=== PATIENT | female | born 1990 | race Caucasian/White ===

== ENCOUNTER 2016-03-20 10:10 | Inpatient (IN) ==
[2016-03-20] MEDS ORDERED: AMBIEN PO PRN (20:10)
[2016-03-20] MEDS ORDERED: BRETHINE SUBQ PRN (20:10)
[2016-03-20] MEDS ORDERED: PEPCID PO PRN (20:10)
[2016-03-20] MEDS ORDERED: ZOFRAN IV PRN (20:10)
[2016-03-20] MEDS ORDERED: TYLENOL PO PRN (20:10)
[2016-03-20] MEDS ORDERED: STADOL IV PRN ×3 (20:10)
[2016-03-20] MEDS ORDERED: PEPCID IV PRN (20:10)
[2016-03-20] MEDS ORDERED: KEFZOL 1 GM/D5W 50 ML IV PRN (20:10)
[2016-03-20] MEDS ORDERED: PITOCIN 30 UNITS/LR 500 ML IV SCH (20:15)
[2016-03-20] MEDS: LR 1,000 ML IV SCH (21:15)
[2016-03-20 21:31] LABS: MANUAL DIFF NEEDED? NO
[2016-03-20 21:33] LABS: BASO% 0.2 % (0.0-0.8); EOS# 0.02 X1000 (0.0-0.7); EOS% 0.1 % (0.0-10.0); HEMATOCRIT 38.3 % (37.0-47.0); HEMOGLOBIN 12.4 g/dL (12.0-16.0); IMM GRAN# 0.05 X1000 (0.0-0.04); IMM GRAN% 0.3 % (0.0-0.5); LYMPH# 2.94 X1000 (1.2-3.4); LYMPH% 15.9 % (20.5-51.1); MCH 28.6 PG (27-31); MCHC 32.4 g/dL (33-37); MCV 88.2 FL (81-99); MONO# 1.02 X1000 (0.11-0.59); MONO% 5.5 % (1.7-9.3); PLT 230 X1000 (130-400); RBC 4.34 XMIL (4.2-5.4)
[2016-03-20] MEDS ORDERED: CYTOTEC PO ONE (22:00)
[2016-03-21] MEDS ORDERED: CYTOTEC PO SCH (02:00)
[2016-03-21] MEDS ORDERED: NAROPIN 0.2% EPIDURAL PRN ×2 (07:53→10:06)
[2016-03-21] MEDS: LR 1,000 ML IV SCH (08:54)
[2016-03-21] MEDS ORDERED: FENTANYL-BUPIV-NS 2 MCG-0.1% 200 ML ONE (09:26)
[2016-03-21] MEDS ORDERED: MARCAINE 0.25% PF ONE (09:26)
[2016-03-21] MEDS ORDERED: FENTANYL-BUPIV-NS 2 MCG-0.1% 200 ML EPIDURAL PRN (10:07)
[2016-03-21] MEDS ORDERED: MARCAINE 0.25% PF INJ ONE (10:15)
[2016-03-21 12:04] LABS: URINE SOURCE VOIDED
[2016-03-21 12:15] LABS: BILIRUBIN URINE NEGATIVE (NEGATIVE); BLOOD URINE NEGATIVE (NEGATIVE); CLARITY CLEAR (CLEAR); COLOR YELLOW; GLUCOSE URINE NEGATIVE (NEGATIVE); LEUKOCYTES URINE NEGATIVE (NEGATIVE); NITRITE URINE NEGATIVE (NEGATIVE); PROTEIN URINE 1+(30 mg/dL) mg/dL (NEGATIVE); SP GRAVITY URINE 1.015; UROBILINOGEN URINE NORMAL
[2016-03-21 12:23] LABS: UR AMPHETAMINES QUAL NONE DETECTED (NONE DETECT); UR BARBITUATES QUAL NONE DETECTED (NONE DETECT); UR BENZODIAZEPIN QUAL NONE DETECTED (NONE DETECT); UR CANNABINOIDS QUAL NONE DETECTED (NONE DETECT); UR COCAINE QUAL NONE DETECTED (NONE DETECT); UR MDMA QUAL NONE DETECTED (NONE DETECT); UR METHADONE QUAL NONE DETECTED (NONE DETECT); UR METHAMPHETAMINE QUAL NONE DETECTED (NONE DETECT); UR OPIATES QUAL NONE DETECTED (NONE DETECT); UR OXYCODONE QUAL NONE DETECTED (NONE DETECT); UR PCP QUAL NONE DETECTED (NONE DETECT); UR TCA QUAL NONE DETECTED (NONE DETECT)
[2016-03-21] MEDS ORDERED: MINERAL OIL ONE (13:29)
[2016-03-21] MEDS ORDERED: XYLOCAINE-MPF 1% ONE (13:29)
[2016-03-21] MEDS ORDERED: PITOCIN 20 UNITS/LR 1,000 ML ONE (16:00)
[2016-03-21] MEDS ORDERED: HYDROXYZINE PO PRN (16:04)
[2016-03-21] MEDS ORDERED: MINERAL OIL MISC PRN (16:04)
[2016-03-21] MEDS ORDERED: PITOCIN 30 UNITS/LR 500 ML IV ONE (16:04)
[2016-03-21] MEDS ORDERED: PITOCIN 20 UNITS/LR 1,000 ML IV SCH (16:04)
[2016-03-21] MEDS ORDERED: BENADRYL PO PRN (16:04)
[2016-03-21] MEDS ORDERED: HYDROXYZINE IM PRN (16:04)
[2016-03-21] MEDS ORDERED: BENADRYL IV PRN (16:04)
[2016-03-21] MEDS ORDERED: AMBIEN PO PRN (16:04)
[2016-03-21] MEDS ORDERED: BOOSTRIX VACCINE IM ONE (16:04)
[2016-03-21] MEDS ORDERED: CYTOTEC PO PRN (16:04)
[2016-03-21] MEDS ORDERED: XYLOCAINE-MPF 1% INJ PRN (16:04)
[2016-03-21] MEDS ORDERED: M-M-R II VACCINE SUBQ ONE (16:04)
[2016-03-21] MEDS ORDERED: NORCO-5 PO PRN (16:04)
[2016-03-21] MEDS ORDERED: PITOCIN IM PRN (16:04)
[2016-03-21] MEDS: PERI MEDS (DERMOPLAST/NUPERCAINAL/TUCKS) MISC PRN (18:19)
[2016-03-21] MEDS: MOTRIN PO PRN (18:28)
--- NOTE | 2016-03-21 18:30 | OPERATIVE NOTE ---
PROCEDURE DATE: 03/21/2016 PRE DELIVERY DIAGNOSES: 1. Intrauterine at term for labor induction. 2. History of intravenous drug abuse. POST DELIVERY DIAGNOSES: 1. Intrauterine at term for labor induction. 2. History of intravenous drug abuse. 3. Maternal exhaustion. 4. Direct occiput posterior presentation of the baby. PROCEDURE: Vacuum assisted vaginal delivery. PHYSICIAN: Mayo Galdamez MD. ANESTHESIA: Epidural with Dr. Montilla. FINDINGS: Viable female infant. I do not have Apgars or weight at this time. Vacuum assisted due to marked lobes maternal exhaustion. A 3-vessel cord. A second-degree midline laceration repaired with 3-0 Polysorb. ESTIMATED BLOOD LOSS: 100 mL. COMPLICATIONS: No complications. COUNTS: All counts correct. Ms. Pepper is a 25-year-old, primigravida, 39+ weeks, admitted for labor induction. She received Cytotec overnight, began on Pitocin this morning. Was artificially ruptured, started on Pitocin, and received epidural anesthesia. Made progress throughout the day. Began pushing at approximately 1 p.m. Advanced the baby to +4 station. [place] to be occiput posterior. Then could not push past that point, despite adequate time, so at this point, vacuum was introduced. The procedure was explained. Patient accepted. The vacuum cap was placed against the infant's head and pressure was brought up to 550 mmHg. With the next contraction, and use of the vacuum, gentle traction resulted in delivery of the baby occiput posterior. Once head delivered, shoulders, then the body delivered without difficulty. The was placed on mother's abdomen. Cord was doubly clamped and cut. Care of infant was then taken over by nursery personnel. Cord blood was obtained. Three-vessel cord was noted. Gentle traction of the cord resulted in delivery of an intact placenta after approximately 3 minutes. It was discarded. Inspection revealed a second-degree laceration so vag pack was placed and using 3-0 Polysorb the laceration was repaired in the usual fashion. Once this was done, the vag pack was removed. Counts were done, needle, [place], vag pack. All counts were correct. Estimated blood loss 100 mL. Expect routine .
[2016-03-21] MEDS: NORCO-10 PO PRN (20:46)
[2016-03-21] MEDS ORDERED: PERICOLACE PO SCH (21:00)
[2016-03-22] MEDS: NORCO-10 PO PRN ×5 (01:35→23:59)
[2016-03-22] MEDS: MOTRIN PO PRN ×3 (04:38→23:59)
[2016-03-22 06:18] LABS: BASO% 0.1 % (0.0-0.8); EOS# 0.03 X1000 (0.0-0.7); EOS% 0.1 % (0.0-10.0); HEMATOCRIT 33.9 % (37.0-47.0); HEMOGLOBIN 10.7 g/dL (12.0-16.0); IMM GRAN# 0.05 X1000 (0.0-0.04); IMM GRAN% 0.2 % (0.0-0.5); LYMPH# 4.52 X1000 (1.2-3.4); LYMPH% 22.1 % (20.5-51.1); MANUAL DIFF NEEDED? YES; MCH 28.4 PG (27-31); MCHC 31.6 g/dL (33-37); MCV 89.9 FL (81-99); MONO# 1.33 X1000 (0.11-0.59); MONO% 6.5 % (1.7-9.3); PLT 200 X1000 (130-400); RBC 3.77 XMIL (4.2-5.4)
[2016-03-22 07:43] LABS: LYMPHS 23 % (21-51); MONO 6 % (1-9)
[2016-03-22] MEDS: PRECARE PO SCH (08:50)
--- NOTE | 2016-03-22 14:57 | PROGRESS NOTE ---
PROCEDURE DATE: 03/22/2016 SUBJECTIVE: She is day 1. She is without complaints. OBJECTIVE: Vital signs stable. She is afebrile. Physical examination was within normal limits. Uterus is firm and nontender. No cyanosis, clubbing, or edema in her extremities. Postdelivery hemoglobin and hematocrit of 10/33. White count is a little elevated at 20,000, suspected from the stress of delivery. Will watch. If the patient remains afebrile and without complaints, we will discharge in the morning.
[2016-03-23] MEDS: NORCO-10 PO PRN ×3 (03:48→11:28)
[2016-03-23] MEDS: PERI MEDS (DERMOPLAST/NUPERCAINAL/TUCKS) MISC PRN (07:22)
[2016-03-23] MEDS: MOTRIN PO PRN (07:22)
[2016-03-23 07:47] VITALS: BP 128/87
[2016-03-23] MEDS: PRECARE PO SCH (09:05)
[2016-03-23] MEDS ORDERED: FLUZONE QUAD 2016-2017 SYRINGE IM ONE (09:38)
--- NOTE | 2016-03-23 21:17 | DISCHARGE SUMMARY ---
ADMISSION DATE: 03/20/2016 DISCHARGE DATE: 03/23/2016 ADMITTING DIAGNOSIS: 1. Term , for labor induction. 2. Condition stable. DISCHARGE DIAGNOSIS: 1. Term , for labor induction. 2. Condition stable. DIET: As tolerated. ACTIVITY: Routine . MEDICATIONS: Motrin 800, Keyes 5, vitamins with iron and stool softeners. FOLLOWUP: She is to follow up in 6 weeks in the office. HOSPITAL COURSE: Please refer to Ms. Pepper's records and delivery note. She was admitted for labor induction. She had a successful vacuum-assisted vaginal delivery due to maternal exhaustion and direct OP position of the baby. Afterwards she has done well. Currently, she is ambulating, voiding, tolerating p.o. without complaints and desiring discharge. PHYSICAL EXAMINATION: Vital Signs: Stable. She is afebrile. General: She is alert and cooperative, no distress. Neck: Supple. Lungs: Clear. Heart: Regular sinus rhythm. Abdomen: Distended. Uterus is firm and nontender. Extremities: +2 lower extremity edema. LABORATORY: Post delivery hemoglobin and hematocrit 10.7/33.9. DISCHARGE INSTRUCTIONS: We will discharge with above instructions.
== END 2016-03-23 13:10 | disposition home or self-care (01) | DRG 775 ==
LOC: P.LD 19:40
PROVIDERS: ADMIT Obstetrics & Gynecology; ATTEND Obstetrics & Gynecology
PROC: 10D07Z6 Extraction of Products of Conception, Vacuum, Via Natural or Artificial Opening (ICD-10-PCS; principal; 2016-03-21)
PROC: 0KQM0ZZ Repair Perineum Muscle, Open Approach (ICD-10-PCS; 2016-03-21)
PROC: 10907ZC Drainage of Amniotic Fluid, Therapeutic from Products of Conception, Via Natural or Artificial Opening (ICD-10-PCS; 2016-03-21)
PROC: 3E033VJ Introduction of Other Hormone into Peripheral Vein, Percutaneous Approach (ICD-10-PCS; 2016-03-21)
DX: O75.81 Maternal exhaustion complicating labor and delivery (principal); Z23 Encounter for immunization; Z37.0 Single live birth; O70.1 Second degree perineal laceration during delivery; Z3A.39 39 weeks gestation of pregnancy
CPT/HCPCS: 36415; 59025; 81003; 85025; 86592; J0595; J2405; J2590; J7120; Q2038; S0020

== ENCOUNTER 2016-03-24 19:11 | Emergency (ER) ==
[2016-03-24 19:27] VITALS: BP 158/108
[2016-03-24 19:39] LABS: MANUAL DIFF NEEDED? NO
[2016-03-24 19:46] LABS: BASO% 0.2 % (0.0-0.8); EOS# 0.14 X1000 (0.0-0.7); EOS% 1.2 % (0.0-10.0); HEMATOCRIT 35.1 % (37.0-47.0); HEMOGLOBIN 11.4 g/dL (12.0-16.0); IMM GRAN# 0.02 X1000 (0.0-0.04); IMM GRAN% 0.2 % (0.0-0.5); LYMPH# 2.38 X1000 (1.2-3.4); LYMPH% 19.9 % (20.5-51.1); MCH 29.1 PG (27-31); MCHC 32.5 g/dL (33-37); MCV 89.5 FL (81-99); MONO# 0.52 X1000 (0.11-0.59); MONO% 4.3 % (1.7-9.3); MPV 11.6 FL (7.4-10.4); NEUT% 74.2 % (42.2-75.2); PLT 257 X1000 (130-400); RBC 3.92 XMIL (4.2-5.4)
[2016-03-24 20:04] LABS: AGAP 14; ALBUMIN 3.1 g/dL (3.5-5.0); ALKALINE PHOSPHATASE 134 U/L (32-104); BUN 4 mg/dL (8-22); CALCIUM 8.7 mg/dL (8.8-10.2); CHLORIDE 101 mmol/L (98-107); COSMO 270; GOT 42 U/L (10-30); GPT 33 U/L (10-36); POTASSIUM 3.6 mmol/L (3.5-5.1); SODIUM 137 mmol/L (136-145); TCO2 22 mmol/L (25-35); TOTAL BILIRUBIN 0.23 mg/dL (0.20-1.00); TOTAL PROTEIN 6.2 g/dL (6.3-8.3)
[2016-03-24 20:24] LABS: URINE MICRO REVIEW NEEDED? NO; URINE SOURCE CLEAN CATCH
[2016-03-24 20:26] LABS: BILIRUBIN URINE NEGATIVE (NEGATIVE); BLOOD URINE MODERATE (NEGATIVE); COLOR YELLOW; GLUCOSE URINE NEGATIVE (NEGATIVE); LEUKOCYTES URINE SMALL (NEGATIVE); NITRITE URINE NEGATIVE (NEGATIVE); PROTEIN URINE 30 mg/dL (NEGATIVE); TURBIDITY URINE CLEAR (CLEAR); UROBILINOGEN URINE NORMAL (NORMAL)
[2016-03-24 20:27] LABS: UR EPITHELIAL CELLS <10 /HPF (<10); URINE BACTERIA NEGATIVE /HPF; URINE CULTURE NEEDED? YES; URINE RBC TNTC /HPF (<10); URINE WBC TNTC /HPF (<10)
--- NOTE | 2016-03-24 20:30 | PROVIDER DOCUMENTATION ---
HPI-General Adult - General Chief Complaint: General Adult Stated Complaint: FEVER, RT SIDE PAIN Time Seen by Provider: 03/24/16 20:07 Source: patient Allergies/Adverse Reactions: Patient Allergies Allergy/AdvReac Type Severity Reaction Status Date / Time No Known Allergies Allergy Verified 03/24/16 19:32 - History of Present Illness -Gen Adult Nature of Presenting Problems: 25 y/o WF c/o R sided head, neck, and UE pain x 1 day. Pt states that it feels like a muscle cramp. Denies any DANIEL, numbness/tingling. just recently had her first child 3 days ago, and was discharged yesterday. was discharged from [place] yesterday without these sxs. Reports that she has not been sleeping, as she was excited about the baby the week before, now she is afraid that if she goes to sleep something will happen. States she slept on and off today. Reports untreated anxiety. Review of Systems - Adult - REVIEW OF SYSTEMS - ADULT Constitutional: reports: see HPI, fever. denies: chills Eyes: reports: no symptoms reported. denies: blurred vision, double vision Ears, Nose, Mouth & Throat: reports: no symptoms reported. denies: ear pain, nose pain Cardiovascular: reports: no symptoms reported. denies: chest pain, palpitations Respiratory: reports: no symptoms reported. denies: dyspnea on exertion, shortness of breath Gastrointestinal: reports: no symptoms reported. denies: abdominal pain, nausea , vomiting Genitourinary: reports: no symptoms reported. denies: dysuria, frequency Musculoskeletal: reports: see HPI, muscle aches. denies: joint pain, joint swelling Integumentary: reports: no symptoms reported. denies: nail changes, rash Neurological: reports: no symptoms reported. denies: headache/migraines, numbness, paresthesia Psychiatric: reports: no symptoms reported Endocrine: reports: no symptoms reported. denies: cold intolerance, heat intolerance Hematologic/Lymphatic: reports: no symptoms reported. denies: easy bruising, prolonged bleeding Allergic/Immunologic: reports: no symptoms reported All Other Systems: Reviewed and Negative Past History - Adult - PAST MEDICAL HISTORY-ADULT Review of Records: reports: Nursing Assessment Review, Medications Reviewed Major Childhood Illnesses: reports: denies history Cardiovascular: reports: denies history Other Conditions: reports: denies history - PRIOR SURGERIES/PROCEDURES Surgical/Procedure History: reports: none - IMMUNIZATION STATUS Childhood Immunizations: See Nurse Assessment Flu Vaccine: See Nurse Assessment - FAMILY HISTORY Family History: reviewed, not pertinent Physical Exam-General - PHYSICAL EXAM-ADULT Initial Vital Signs Reviewed: Yes - CONSTITUTIONAL General Appearance: alert, mild distress - EYES Eyes: PERRL/EOMI, pink conjunctivae, other (OU is 20/20) - HEAD, EARS, NOSE, MOUTH & THROAT HENMT: moist mucous membranes - NECK Neck: full range of motion, supple, normal inspection. negative: Brudzinski's sign, C-spine tenderness - RESPIRATORY Respiratory: lungs clear, normal breath sounds. negative: crackles, rales, rhonchi, stridor, wheezing - CARDIOVASCULAR Cardiovascular: regular rate, rhythm. negative: bradycardia, tachycardia - MUSCULOSKELETAL Extremity: normal range of motion, normal inspection, normal capillary refill. negative: abnormal NV exam, pulse deficit, swelling, tenderness - SKIN Integumentary: normal color, normal turgor, warm/dry - NEUROLOGIC Neurologic: negative: aphasia - PSYCHIATRIC Psych/Mental Status: normal mood/affect, normal thought content, normal thought process, oriented x 3 Departure - Departure Time of Disposition Order: 21:17 DIAGNOSIS: Muscle pain Insomnia Qualifiers: Insomnia type: unspecified Qualified Code(s): G47.00 - Insomnia, unspecified UTI (urinary tract infection) Qualifiers: Urinary tract infection type: acute cystitis Hematuria presence: with hematuria Qualified Code(s): N30.01 - Acute cystitis with hematuria Disposition: HOME 01 Certified Medical Emergency: Emergent Condition: Stable Additional Instructions: Take medications as directed. Follow up with PCP/OB in 1-3 days for recheck. ED Follow Up Instructions: You have been treated by a care provider in the Emergency Department. These instructions are being provided to you so you can have an understanding of how to care for yourself upon discharge. Upon discharge from the Emergency Department, you are responsible for making arrangements for follow-up care by a physician of your choice. Take all prescribed medications as directed. Return to the Emergency Department immediately for any new or worsening symptoms. You may call the Physician Referral phone number at [phone] to obtain a list of Physicians who are taking new patients. Prescriptions: Ciprofloxacin HCl [Cipro] 500 mg PO BID #14 tablet Docusate Sodium [Colace] 100 mg PO BID PRN PRN #20 capsule PRN Reason: Constipation Cyclobenzaprine HCl [Flexeril] 5 mg PO TID #30 tablet Hydrocodone/APAP 7.5 mg/325 mg [[place]-7.5] 1 each PO Q6H PRN PRN #10 tablet PRN Reason: Pain Attestation - Physician/ Mid-level Attestation Patient care was provided by Mid-level provider (FUR FARMER/PA):: Yes Mid-level provider:: Sally Corado Mid-level documentation review:: The Mid-level provider documentation, treatment plan and medical decision making was reviewed by the physician who agrees with all treatment and medical decision making by the MLP.
[2016-03-24] MEDS ORDERED: FLEXERIL PO ONE (21:33)
[2016-03-24] MEDS ORDERED: ATIVAN PO ONE (21:33)
== END 2016-03-24 23:02 | disposition home or self-care (01) ==
LOC: ED 19:11
DX: O86.22 Infection of bladder following delivery (principal); N30.01 Acute cystitis with hematuria; O90.89 Other complications of the puerperium, not elsewhere classified; M79.1 Myalgia; G47.00 Insomnia, unspecified; M54.2 Cervicalgia; M79.603 Pain in arm, unspecified
CPT/HCPCS: 36415; 80053; 81001; 85025; 87088; 87804; 99283